=== PATIENT | male | born 1995 | race Hispanic/Latino ===

== ENCOUNTER 2022-12-26 10:48 | Emergency (ER) | payer OTHER, SELFPAY ==
[2022-12-26 10:49] VITALS: BP 134/94; PULSE 72; RESP 18; TEMP 36.4; O2SAT 98
[2022-12-26 11:09] VITALS: BMI 29.0
--- NOTE | 2022-12-26 11:10 | RAD_ITS ---
STUDY: X-RAY - RIGHT FEMUR REASON FOR STUDY: Male, 27 years old. Foreign Body -- 3 views if possible to look at nail? AP, Lat, Ob TECHNIQUE: 3 view(s) of the femur. COMPARISON: None. FINDINGS: Normal visualized femur. There is a 6.9 cm metallic nail in the soft tissues of the mid thigh overlying the anterolateral aspect of the femur. RAD/Femur Min 2 Views IMPRESSION: Metallic nail seen in the anterior lateral soft tissues overlying the midportion of the femur. Electronically Signed: Sai Greenwood MD at 12:02 EST ,
--- NOTE | 2022-12-26 11:11 | EDS_ITS ---
HPI History of Present Illness Chief Complaint: Foreign Body Narrative Narrative: 27-year-old male, [place]-speaking only presents with foreign body in his right thigh. He was offered a third-libertarian certified court interpreter, but prefers his coworker who is present to interpret for him. Additionally, I do speak a small amount of [place]. He was working with a nail gun, and the hose was wrapped around something. He went to pull it, and the nail gun fired. He is using it approximately 2-1/2 to 3 inch nail which has glue and spikes on it. He has pain in his right thigh where the nail is. He is having muscle spasms around it. He is unsure of his last tetanus immunization. He denies other injury. Tetanus Immunization: Unknown Prior similar symptoms: No PFSH PFSH Medical History No acute medical problems no medical history Home Medications cephalexin 500 mg capsule 500 mg PO BID #14 caps 12/26/22 [Rx Last Taken Unknown] Allergy/AdvReac Type Severity Reaction Status Date / Time No Known Allergies Allergy Verified 12/26/22 11:10 Social History Smoking Status: Never smoker ROS ROS ED ROS Narrative Constitutional: No fever, no chills. HEENT: No sore throat. No neck pain. No loss of vision. No rhinorrhea. Cardiovascular: No chest pain. No palpitations. No pedal edema. Respiratory: No cough, no shortness of breath. Abdominal: No abdominal pain. No nausea. No vomiting. Genitourinary: No dysuria. No hematuria. Musculoskeletal: Right thigh pain. Foreign body lodged in mid right thigh. Neurologic: No headaches. No dizziness. No lightheadedness. Skin: No rash. No change in color. Psychiatric: No depression. No anxiety. EXAM Physical Exam Narrative Exam Narrative: Afebrile. Vital signs noted. HEENT: Normocephalic. Atraumatic. PERRL, EOMI. Neck soft and supple. No point tenderness or step off. Cardiovascular: Regular rate and rhythm. No murmurs, rubs, or gallops appreciated. Respiratory: No tachypnea. Lungs clear to auscultation bilaterally. Gastrointestinal: Abdomen soft, nontender, with normoactive bowel sounds. No rebound or guarding. Neurological: Awake. Alert. Nonfocal, nonlateralizing. Skin: No rash. Normal color. No pallor. Musculoskeletal: No pedal edema. Decreased range of motion right lower extremity secondary to pain. Positive nail embedded to head of nail and mid right thigh anteriorly. Neurovascularly intact distally with palpable dorsalis pedis pulse.. Const Vital Signs: 12/26/22 10:49 12/26/22 13:02 12/26/22 13:02 Temperature 97.5 F L 97.7 F L Temperature Source Temporal Temporal Pulse Rate 72 66 66 Respiratory Rate 18 16 16 Blood Pressure 134/94 H 134/76 H 134/76 H Blood Pressure Mean 107 95 95 Pulse Ox 98 100 100 Oxygen Delivery Method Room Air Room Air Room Air MDM MDM MDM Narrative Medical decision making narrative: His coworker did have another nail that was present, does have copper wire with 2 prongs extending that is used as anchoring, along with blue glue. X-rays were obtained of the right thigh/femur which was interpreted by myself as foreign body in the soft tissue but no evidence of fracture, the and does not stuck in any bone. I reviewed the radiology report which confirms this. Patient was updated on his tetanus immunization. Procedure note: He was informed of the risk of infection and scarring with removal of the nail. Lidocaine 1% was used as a local anesthetic and infiltrated, approximately 12 mL locally. Small incision near the nail head was made using a #11 blade after Povidine iodine cleanse the area along with alcohol. The nail was removed manually using needle drivers and traction. There was a small amount of blood loss. The puncture wound will be left open to heal by secondary intent and he will be placed on antibiotics for prophylaxis. After removal of the nail, wound was irrigated using chlorhexidine and normal saline. Patient tolerated the procedure well. I feel that he can be discharged safely home with follow-up to the [facility] as this is a work-related injury. He was given a note to be off work today and to keep the area clean, dry, and covered when he returns to work tomorrow. He will take [id number] analgesics as needed. Return instructions to the emergency department were reviewed. Disposition is discharged home in stable condition. Radiography Diagnostic Testing: Clinical Impression(s) from Imaging Studies Femur X-Ray 12/26/22 11:10 IMPRESSION: Metallic nail seen in the anterior lateral soft tissues overlying the midportion of the femur. Electronically Signed: Sai Greenwood MD at 12:02 EST , Discharge Plan Triage Chief Complaint: Foreign Body ED Provider: Kenneth Weaver Dx/Rx/DC Orders Clinical Impression: Foreign body of right thigh, Puncture wound Instructions: ED Foreign Body, Soft Tissue (Removed), ED Puncture Wound (General) Prescriptions: New cephalexin 500 mg capsule 500 mg PO BID Qty: 14 0RF Primary Care Provider: Care Physician,No Primary Referrals: Care Physician,No Primary [Primary Care Provider] - [facility] [Non-Staff] - 2 Days for wound check Disposition Disposition: Home, Self Care Discharge Date/Time: 12/26/22 13:59
[2022-12-26] MEDS: Diphth,Pertuss(Acell),Tet Vac 0.5 ML Vial IM (12:31)
[2022-12-26 13:02] VITALS: BP 134/76; PULSE 66; RESP 16; TEMP 36.5; O2SAT 100
[2022-12-26] MEDS: Lidocaine 1% (20 ml mdv) 20 ML Vial 10 ML INFILT (13:29)
--- NOTE | 2022-12-26 13:42 | ED.RN ---
PER DR. CEBALLOS USE PETROLEUM DRESSING ON WOUND. THIS RN APPLIED PETROLEUM DRESSING TO RIGHT THIGH WOUND. PT TOLERATED WELL. DRESSING COVERED WITH DRY GAUZE. SKIN P/W/D AFTER DRESSING APPLIED, RIGHT LOWER EXTREMITY PULSE +2.
== END 2022-12-26 13:59 | disposition home or self-care (01) ==
PROVIDERS: Emergency Provider Emergency Medicine; Visit Provider Emergency Medicine
DX: S71.141A Puncture wound with foreign body, right thigh, initial encounter (principal); W29.4XXA Contact with nail gun, initial encounter; Y99.0 Civilian activity done for income or pay; Z23 Encounter for immunization
CPT/HCPCS: 73552; 90471; 90715; 99283